=== PATIENT | female | born 1940 | race Caucasian/White ===

== ENCOUNTER 2016-06-11 16:18 | Emergency (ER) | payer MEDICARE ==
--- NOTE | ~2016-06-11 | EKG ---
PATIENT: KEVIN PIERRE UNIT #: [id number] Ventricular Rate: 83 BPM Atrial Rate: 83 BPM P-R Interval: 150 ms QRS Duration: 76 ms Q-T Interval: 370 ms QTC Calculation(Bezet): 434 ms P Raymond: 72 degrees Calculated R Raymond: 86 degrees Calculated T Raymond: 80 degrees Diagnosis Line: Normal sinus rhythm Diagnosis Line: Normal ECG Diagnosis Line: When compared with ECG of 28-JUN-2015 12:36, Diagnosis Line: No significant change was found Diagnosis Line: Confirmed by KD ERNST MD ([id number]) on 06/12/2016 Diagnosis Line: 6:20:55 PM INTERPRETING MD: SUJATA SWAIN
--- NOTE | ~2016-06-11 | CR72 ---
[facility] A Service of [facility] & [facility] RADIOLOGY TEXT RESULTS PATIENT: KEVIN PIERRE LOCATION: [facility] : 39 UNIT #: [id number] AGE: [address]: Erich Marr MD SEX: F ORDER DR: [id number] [facility] [address] [place], [place] [address] [id number] P MR#: [id number] Acc #: [id number] NAME: KEVIN PIERRE. : 1940 SEX: F STUDY DATE/TIME: 06/11/2016 13:59 UNIT: [facility] ROOM: STUDY DESCRIPTION: CR Chest Single View Portable Attending Physician: Erich Marr M.D. Ordering Physician: Tana Kline M.D. Primary Care Physician: Britton Vincent M.D. MEDICAL IMAGING REPORT This report is preliminary unless electronic signature is present EXAM Portable chest 06/11/2016 HISTORY Shortness of air x2 days. COMPARISON STUDIES None FINDINGS Portable view of the chest demonstrates pulmonary hyperinflation hyperlucency compatible with underlying emphysema. No acute airspace disease or consolidation. No effusions. Heart and mediastinum unremarkable for age. Thoracolumbar scoliosis with postoperative changes from apparent vertebroplasty T12. Generalized osteopenia. Overall pulmonary changes compatible with emphysema but no acute findings. Dictated by... Rajan Velazquez M.D. THIS IS AN ELECTRONICALLY VERIFIED REPORT Rajan Velazquez M.D. at 06/11/2016 4:54 PM Leighann TD: 06/11/2016 16:10 JOB #: [id number] MEDICAL IMAGING REPORT COPY
[2016-06-11 14:32] LABS: INFLUENZA A NEG (NEG); INFLUENZA B NEG (NEG)
[2016-06-11 14:37] LABS: BASOPHIL% 0.6 % (0-2.5); EOSINOPHIL% 0.3 % (0.0-7.0); HEMATOCRIT 39.1 % (35.0-45.0); HEMOGLOBIN 13.3 gm/dL (12.0-16.0); LYMPHOCYTE# 1.3 X10e3 (1.0-3.5); MEAN CELL VOLUME 102.8 FL (83-96); MEAN PLATELET VOLUME 7.6 FL (6.5-11.5); MONOCYTE# 0.8 X10e3 (0-1.0); MONOCYTE% 10.1 % (3.0-12.0); NEUTROPHIL# 5.4 X10e3 (1.5-7.1); PLATELET COUNT 196 X10e3 (140-420); RED BLOOD COUNT 3.81 X10e (3.90-5.30); RED CELL DISTRIBUTION WIDTH 13.2 % (11.0-15.5); WHITE BLOOD COUNT 7.4 X10e3 (4.0-10.5)
[2016-06-11 14:39] LABS: DIFF IND NO
[2016-06-11 14:52] LABS: PARTIAL THROMBOPLASTIN TIME 24.7 SECONDS (23.5-31.3); PROTHROMBIN TIME (PATIENT) 10.5 SECONDS (9.6-11.5)
[2016-06-11 14:52] LABS: POC - CKMB 1.2 ng/mL (0.0-7.9); POC - TROPONIN <0.05 ng/mL (<=0.05)
[2016-06-11 15:06] LABS: ALBUMIN SERUM 3.5 g/dL (3.5-5.0); BILIRUBIN, DIRECT 0.1 mg/dL (0.0-0.2); BILIRUBIN,INDIRECT 0.5 mg/dL (0.0-0.9); BILIRUBIN,TOTAL 0.6 mg/dL (0.2-2.0); CALCIUM SERUM 8.9 mg/dL (8.4-10.2); GLOM FILT RATE Estimated 57.1 mL/min (>60)
[~2016-06-11 16:18] MED LIST: ASPIRIN81 M1 PO; CENTRUM SILVER PO; FLEXERIL10 M1 PO; MEVACOR PO; MEVACOR40 MG PO; PANTOPRAZOLE SO40 MG PO; PROTONIX PO; TRAZODONE HCL100 MG PO; TRAZODONE PO; VITAMIN D1000 UNIT PO; VITAMIN D400 UNI2 PO; XANAX0.5 M1 PO
[2016-12-22] MEDS ORDERED: OXAYDO7.5 MG ×2 (13:49→14:05)
[2016-12-22] MEDS ORDERED: ASPIRIN EC81 M1 PO (13:58)
[2016-12-22] MEDS ORDERED: PANTOPRAZOLE SO40 MG PO (13:58)
[2016-12-22] MEDS ORDERED: MEVACOR PO (13:59)
[2016-12-22] MEDS ORDERED: VITAMIN B122500 MCG (14:00)
[2016-12-22] MEDS ORDERED: STOOL SOFTENER1 EAC1 (14:00)
[2016-12-22] MEDS ORDERED: LEVALBUTER0.63 MG/3 INH (14:02)
[2016-12-22] MEDS ORDERED: VITAMIN D400 UNI2 PO (14:03)
[2016-12-23] MEDS ORDERED: TRAZODONE HCL100 MG PO (11:15)
[2016-12-23] MEDS ORDERED: OXYCODON-ACETA1 EAC1 PO (11:26)
== END 2016-06-11 16:33 | disposition home or self-care (01) ==
LOC: CED 16:18
PROVIDERS: Emergency Medicine
DX: R06.00 Dyspnea, unspecified (principal); F17.210 Nicotine dependence, cigarettes, uncomplicated; Z98.890 Other specified postprocedural states; Z88.2 Allergy status to sulfonamides; Z88.5 Allergy status to narcotic agent; Z88.8 Allergy status to other drugs, medicaments and biological substances
CPT/HCPCS: 36415; 71010; 80048; 80076; 82553; 83880; 84484; 85025; 85610; 85730; 87804; 93005; 99284

== ENCOUNTER → 2016-10-06 | Outpatient (CLI) | payer MEDICARE ==
[~2016-10-06] MED LIST changes: +ASPIRIN EC81 M1 PO; +LEVALBUTER0.63 MG/3 INH; +OXAYDO7.5 MG; +OXYCODON-ACETA1 EAC1 PO; +STOOL SOFTENER1 EAC1; +VITAMIN B122500 MCG
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
== END | disposition home or self-care (01) ==
LOC: CRAD 15:44
DX: M25.552 Pain in left hip (principal); M41.9 Scoliosis, unspecified
CPT/HCPCS: 73502

== ENCOUNTER → 2016-10-17 | Outpatient (CLI) | payer MEDICARE ==
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
== END | disposition home or self-care (01) ==
LOC: CNUC 08:58
DX: Z13.820 Encounter for screening for osteoporosis (principal); M25.552 Pain in left hip; M41.9 Scoliosis, unspecified
CPT/HCPCS: 78306; A9503

== ENCOUNTER → 2016-12-23 | Day surgery (SDC) | payer MEDICARE ==
--- NOTE | ~2016-12-23 | OR ---
Unit #: [id number] #: [id number] Patient: KEVIN PIERRE [id number] [address] [place], [place] [address] [id number] O MR#: [id number] NAME: KEVIN PIERRE ROOM: Date of Procedure: 12/23/2016 Admission Date: 12/23/2016 Surgeon: Cesar Hurst M.D. : 1940 Attending Physician: Cesar Hurst M.D. Primary Care Physician: Britton Vincent M.D. OPERATIVE REPORT PREOPERATIVE DIAGNOSES Radiculopathy and herniated nucleus pulposus. POSTOPERATIVE DIAGNOSES Radiculopathy and herniated nucleus pulposus. PROCEDURE PERFORMED Transforaminal epidural steroid injection left L3-L4 with intravenous sedation and fluoroscopic guidance for needle localization. INDICATIONS FOR PROCEDURE The patient is a 76-year-old female with worsening left-sided hip and leg pain. Workup demonstrated disk herniations to the left at L3-L4 and L4-L5, which causing the predominance of symptomatology. After having failed conservative treatment, plan is for trial of transforaminal injection at the L3-L4 level. If this is not settle the symptoms, we may look at the repeat injection at L4-L5. DESCRIPTION OF PROCEDURE The patient was placed in a prone position. Standard monitors were applied. 1 mg of Versed was given for sedation and anxiolysis, which were adequate. Vital signs remained stable. Sterile prep and drape then of the lumbar area was performed. The skin at the left of midline at the L3-L4 level was localized with 1% lidocaine. A long 22-gauge Quincke point spinal needle was then advanced with biplanar fluoroscopy to bring the needle tip to within the edge of the left L3-L4 neural foramina. After confirming proper positioning with fluoroscopy and radiographic contrast, a dose of 80 mg of Depo-Medrol and 1 mL of 0.25% bupivacaine were deposited. The patient tolerated the procedure otherwise well and was discharged to the recovery room in stable condition. Dictated by... Arlet Simpson/lavern TD: 12/23/2016 12:22 JOB #: [id number] Unit #: [id number] #: [id number] Patient: IGNACIO,KEVIN L OPERATIVE REPORT Page 1 of 1 X Cesar Hurst MD X PROCEDURE OPERATIVE NOTE
== END | disposition home or self-care (01) ==
LOC: CCSC 10:54
DX: M51.16 Intervertebral disc disorders with radiculopathy, lumbar region (principal); J44.9 Chronic obstructive pulmonary disease, unspecified; M19.90 Unspecified osteoarthritis, unspecified site; Z88.2 Allergy status to sulfonamides; Z88.5 Allergy status to narcotic agent; Z79.82 Long term (current) use of aspirin; Z79.899 Other long term (current) drug therapy
CPT/HCPCS: J1040; J2250